=== PATIENT | female | born 1995 | race Caucasian/White ===

== ENCOUNTER 2021-07-03 18:24 | Emergency (ER) | payer BC ==
[2021-07-03 18:41] VITALS: BP 122/87; PULSE 87
[2021-07-03] MEDS ORDERED: Sodium Chloride 0.9% 10 ML Syringe FLUSH PRN (18:46)
--- NOTE | 2021-07-03 19:02 | EDM.PDOC ---
ED HPI GENERAL MEDICAL PROBLEM - General Chief Complaint: General Stated Complaint: HEAT INTOLERANCE/EXHAUSTION Time Seen by Provider: 07/03/21 18:42 Source of Information: Reports: Patient History Limitations: Reports: No Limitations - History of Present Illness INITIAL COMMENTS - FREE TEXT/NARRATIVE: Maryanne is a 26-year-old female presenting to the ED with a multitude of compla ints including 1 month history of diarrhea, night sweats, fatigue, nausea and vomiting. She reports reports that she had a very inclusive work-up by her primary care provider in [place] including CBC, comprehensive metabolic panel, TSH, Lyme's, and CRP. He also reports that they checked her for diabetes. Despite having diarrhea and nausea and vomiting, it does not appear that they have done any stool studies. She reports over the last couple of days her stools have been floating and more fatty raising concerns about pancreatic insufficiency. She states to date they have not been able to figure out what is causing her symptoms. Tonight she was not able to take her medications and she is concerned that she is becoming dehydrated. She also reports having night sweats and even day sweats now. She reports having increased fatigue. She reports having 5-6 loose stools a day usually after she eats. He has not had any fever for the last 2 weeks but initially she thought she had a stomach bug with fever, chills, nausea, vomiting, and diarrhea. The diarrhea has never improved since the onset of her symptoms. The only change in medication is she discontinued her oral contraceptives and had a Nexplanon implanted a week ago. Symptoms preceded this. It is not clear if they have checked her for Covid, nor is it clear if she has been vaccinated. - Related Data Allergies Allergy/AdvReac Type Severity Reaction Status Date / Time No Known Allergies Allergy Verified 07/03/21 18:36 Home Meds: Home Meds L Acidophil/B Lactis/B Longum [Florajen Digest 15 B Cell Cap] 1 each PO DAILY #30 capsule 07/03/21 [Rx] Sertraline HCl [Zoloft] 100 mg PO BEDTIME 07/03/21 [History] amLODIPine [Norvasc] 2.5 mg PO DAILY 07/03/21 [History] Past Medical History - Past Health History Medical/Surgical History: Denies Medical/Surgical History Other DATA [employer] History: implanted control Social & Family History - Tobacco Use Tobacco Use Status *Q: Never Tobacco User ED ROS GENERAL - Review of Systems Review Of Systems: See Below Constitutional: Reports: Malaise, Fatigue, Night Sweats HEENT: Reports: No Symptoms Respiratory: Reports: No Symptoms Cardiovascular: Reports: No Symptoms Endocrine: Reports: Fatigue GI/Abdominal: Reports: Diarrhea, Nausea, Vomiting (Unable to keep fluids or medication down today. She was not placed on anything for control of nausea.) : Reports: No Symptoms Musculoskeletal: Reports: No Symptoms Skin: Reports: No Symptoms Neurological: Reports: No Symptoms Psychiatric: Reports: No Symptoms Hematologic/Lymphatic: Reports: No Symptoms Immunologic: Reports: No Symptoms ED EXAM, GENERAL - Physical Exam Exam: See Below General Appearance: Alert, No Apparent Distress Eye Exam: Bilateral Eye: EOMI, PERRL Throat/Mouth: Normal Inspection, Normal Lips, Normal Oropharynx, Normal Voice, No Airway Compromise Head: Atraumatic, Normocephalic Neck: Normal Inspection, Supple, Non-Tender, Full Range of Motion Respiratory/Chest: No Respiratory Distress, Lungs Clear, Normal Breath Sounds Cardiovascular: Normal Peripheral Pulses, Regular Rate, Rhythm, No Murmur Peripheral Pulses: 2+: Radial (L), Radial (R) GI/Abdominal: Normal Bowel Sounds, Soft, Non-Tender. No: Guarding, Rebound Back Exam: Normal Inspection Extremities: Normal Inspection Neurological: Alert, Oriented, Normal Cognition, No Motor/Sensory Deficits Psychiatric: Normal Affect, Normal Mood Skin Exam: Warm, Diaphoretic, Pallor Lymphatic: No Adenopathy Course - Vital Signs Last Recorded V/S: Last Vital Signs Temp 36.4 C 07/03/21 18:42 Pulse 87 07/03/21 18:42 Resp 16 07/03/21 18:42 BP 122/87 07/03/21 18:42 Pulse Ox 98 07/03/21 18:42 - Orders/Labs/Meds Orders: Active Orders 24 hr Category Date Time Status CLOS DIFFICILE PCR W/REFLEX [RM] Stat Lab 07/03/21 20:04 Results CLOSTRIDIUM DIFFICILE TOXIN [RM] Stat Lab 07/03/21 20:04 Results CULTURE STOOL + SHIGATOX [RM] Stat Lab 07/03/21 20:04 Results FECAL FAT, QUALITATIVE Stat Lab 07/03/21 20:04 Received GIARDIA LAMBLIA AG, EIA Stat Lab 07/03/21 20:04 Received Sodium Chloride 0.9% [Saline Flush] Med 07/03/21 18:46 Active 10 ml FLUSH ASDIRECTED PRN Saline Lock Insert [OM.PC] Routine Oth 07/03/21 18:46 Ordered Medication Orders Sodium Chloride (Sodium Chloride 0.9% 10 Ml Syringe) 10 ml FLUSH ASDIRECTED PRN PRN Reason: Keep Vein Open Labs: Laboratory Tests 07/03/21 07/03/21 Range/Units 19:06 19:06 WBC 13.7 H (4.5-11.0) K/uL RBC 4.76 (3.30-5.50) M/uL Hgb 14.0 (12.0-15.0) g/dL Hct 42.6 (36.0-48.0) % MCV 90 (80-98) fL MCH 29 (27-31) pg MCHC 33 (32-36) % Plt Count 383 (150-400) K/uL Neut % (Auto) 79.6 H (36-66) % Lymph % (Auto) 13.0 L (24-44) % [place] % (Auto) 6.1 H (2-6) % Eos % (Auto) 0.9 L (2-4) % Baso % (Auto) 0.4 (0-1) % Sodium 137 L (140-148) mmol/L Potassium 4.2 (3.6-5.2) mmol/L Chloride 99 L (100-108) mmol/L Carbon Dioxide 27 (21-32) mmol/L Anion Gap 15.2 H (5.0-14.0) mmol/L BUN 12 (7-18) mg/dL Creatinine 1.0 (0.6-1.0) mg/dL Est Cr Clr Drug Dosing 87.51 mL/min Estimated GFR (MDRD) > 60 (>60) Glucose 84 (74-106) mg/dL Calcium 9.7 (8.5-10.1) mg/dL Total Bilirubin 0.7 (0.2-1.0) mg/dL AST 31 (15-37) U/L ALT 87 H (12-78) U/L Alkaline Phosphatase 74 (46-116) U/L Total Protein 7.6 (6.4-8.2) g/dL Albumin 3.8 (3.4-5.0) g/dL Globulin 3.8 H (2.3-3.5) g/dL Albumin/Globulin Ratio 1.0 L (1.2-2.2) Amylase 75 (25-115) U/L Lipase 138 (73-393) U/L TSH, Ultra Sensitive 1.466 (0.358-3.740) uIU/mL Meds: Medications Generic Name Dose Route Start Last Admin Trade Name Freq PRN Reason Stop Dose Admin Sodium Chloride 10 ml 07/03/21 18:46 Sodium Chloride 0.9% 10 Ml Syringe FLUSH ASDIRECTED PRN Keep Vein Open Discontinued Medications Generic Name Dose Route Start Last Admin Trade Name Freq PRN Reason Stop Dose Admin Ondansetron HCl 4 mg 07/03/21 19:05 07/03/21 19:13 Ondansetron 4 Mg Tab.Dis PO 07/03/21 19:06 4 mg ONETIME ONE Administration - Re-Assessments/Exams Free Text/Narrative Re-Assessment/Exam: 07/03/21 19:57 abs were reviewed showing a normal CBC except for a leukocyte count of 13.7 with a slight left shift. Hemoglobin is 14.0 with hematocrit of 40.2.9 and a platelet count of 303,000. Comprehensive metabolic panel is unremarkable. Amylase is 75 and a lipase of 138 which are both normal. TSH is normal at 1.466. Patient was given Zofran 4 mg ODT with improvement of her nausea. We are still awaiting her to provide us with stool for stool studies. 07/03/21 21:53 C. difficile is positive. We will start the patient on Flagyl 500 mg 3 times daily for 10 days and Florajen to replete her healthy bacteria. Given the positive C. difficile, this is likely C. difficile colitis causing the chronic diarrhea. Indications return to the ED were discussed and at this time she is suitable for discharge home in satisfactory condition. Departure - Departure Time of Disposition: 21:55 Disposition: Home, Self-Care 01 Clinical Impression: Night sweats, Clostridium difficile colitis Nausea and vomiting Qualifiers: Vomiting type: unspecified Vomiting Intractability: non-intractable Qualified Code(s): R11.2 - Nausea with vomiting, unspecified Diarrhea Qualifiers: Diarrhea type: unspecified type Qualified Code(s): R19.7 - Diarrhea, unspecified - Discharge Information Instructions: Clostridioides Difficile Infection, [id number] Referrals: PCP,None [Primary Care Provider] - Forms: ED Department Discharge Care Plan Goals: For the C. difficile colitis we are going to put you on Flagyl 500 mg 3 times a day for 10 days. This should help clear up your diarrhea. I have prescribed Zofran 4 mg ODT 1 tablet every 6-8 hours as needed to control nausea. You will want to start a probiotic, I recommend Florajen to replete your intestine with healthy bacteria. I have prescribed this for you and a written prescription that she will be able to fill tomorrow at the pharmacy. You may also want to consider eating cultured yogurt like Activa. Sepsis Event Note (ED) - Evaluation Sepsis Screening Result: No Definite Risk - Focused Exam Vital Signs: Vital Signs Temp Pulse Resp BP Pulse Ox 07/03/21 18:42 36.4 C 87 16 122/87 98 07/03/21 18:35 36.4 C 87 16 122/87 98 - Problem List & Annotations (1) Nausea and vomiting SNOMED Code(s): 19819513 Code(s): R11.2 - NAUSEA WITH VOMITING, UNSPECIFIED Status: Acute Priority: Medium Current Visit: Yes Qualifiers: Vomiting type: unspecified Vomiting Intractability: non-intractable Qualified Code(s): R11.2 - Nausea with vomiting, unspecified (2) Night sweats SNOMED Code(s): 73060640 Code(s): R61 - GENERALIZED HYPERHIDROSIS Status: Acute Priority: Medium Current Visit: Yes (3) Diarrhea SNOMED Code(s): 09483152 Code(s): R19.7 - DIARRHEA, UNSPECIFIED Status: Acute Priority: Medium Current Visit: Yes Qualifiers: Diarrhea type: unspecified type Qualified Code(s): R19.7 - Diarrhea, unspecified (4) Clostridium difficile colitis SNOMED Code(s): 731861159 Code(s): A04.72 - ENTEROCOLITIS D/T CLOSTRIDIUM DIFFICILE, NOT SPCF RECUR Status: Acute Priority: Medium Current Visit: Yes - Problem List Review Problem List Initiated/Reviewed/Updated: Yes - My Orders Last 24 Hours: My Active Orders 07/03/21 18:46 Sodium Chloride 0.9% [Saline Flush] 10 ml FLUSH ASDIRECTED PRN Saline Lock Insert [OM.PC] Routine 07/03/21 20:04 CLOS DIFFICILE PCR W/REFLEX [RM] Stat CLOSTRIDIUM DIFFICILE TOXIN [RM] Stat CULTURE STOOL + SHIGATOX [RM] Stat FECAL FAT, QUALITATIVE Stat GIARDIA LAMBLIA AG, EIA Stat - Assessment/Plan Last 24 Hours: My Active Orders 07/03/21 18:46 Sodium Chloride 0.9% [Saline Flush] 10 ml FLUSH ASDIRECTED PRN Saline Lock Insert [OM.PC] Routine 07/03/21 20:04 CLOS DIFFICILE PCR W/REFLEX [RM] Stat CLOSTRIDIUM DIFFICILE TOXIN [RM] Stat CULTURE STOOL + SHIGATOX [RM] Stat FECAL FAT, QUALITATIVE Stat GIARDIA LAMBLIA AG, EIA Stat
[2021-07-03] MEDS ORDERED: Ondansetron 4 MG Tab.DIS PO ONE (19:05)
== END 2021-07-03 21:58 | disposition home or self-care (01) ==
LOC: JP.ED 18:24
DX: A04.72 Enterocolitis due to Clostridium difficile, not specified as recurrent (principal); R61 Generalized hyperhidrosis
CPT/HCPCS: 36415; 80053; 82150; 82705; 83690; 84443; 85025; 87046; 87329; 87493; 87899; 99284; A9270